=== PATIENT | female | born 1950 | race Caucasian/White ===

== ENCOUNTER 2019-08-15 09:12 | Emergency (ER) | payer OTHER, MEDICAID ==
[~2019-08-15] VITALS: Ht 149.9 cm; Wt 61.2 kg
[2019-08-15 09:22] VITALS: BP 189/71
--- NOTE | 2019-08-15 09:29 | NUR ---
Patient ambulated to bed 6. RN evaluating patient at bedside.
--- NOTE | 2019-08-15 09:49 | NUR ---
Dr. Gruber is evaluating the patient at bedside.
[2019-08-15] MEDS ORDERED: ASPIRIN 325 MG TAB PO ONE (09:55)
[2019-08-15] MEDS ORDERED: LOSARTAN 50 MG TAB PO SCH (10:00)
--- NOTE | 2019-08-15 10:00 | NUR ---
C/O LEFT SIDED CHEST PAIN 08/02, DESCRIBED BURNING, X 1 DAY. UNPROVOKED AND CONSTANT ALL DAY AND DIAPHORETIC X YESTERDAY. PAIN RAIDAITING TO L ARM YESTERDAY. DENIES N/V/D OR AB PAIN. PT ALERT AND AWAKE, DR CALIX AND SPOOL CLEANER HAND NOTES REVIEWED-PT PERUVIAN SPEAKING. HX---THYROID, HTN, HYPERLIPIDEMIA
--- NOTE | 2019-08-15 10:05 | NUR ---
iv inserted and labs drawn bedside
--- NOTE | 2019-08-15 10:07 | NUR ---
aspirin po administered
--- NOTE | 2019-08-15 10:20 | NUR ---
xray at bedside
--- NOTE | 2019-08-15 10:30 | NUR ---
CALLED PHARMACY FOR LOSARTAN
--- NOTE | 2019-08-15 10:53 | NUR ---
LOSARTAN PO ADMINISTERED
--- NOTE | 2019-08-15 10:58 | NUR ---
PTS BP CURRENTLY 153/71
[2019-08-15 11:02] LABS: ALBUMIN 3.5 g/dL (3.4-5.0); ANION GAP 10.4 (8-16); CARBON DIOXIDE 30.4 mmol/L (21-32); CREATININE 0.8 mg/dL (0.6-1.3); POTASSIUM 3.8 mmol/L (3.5-5.1); TOTAL BILIRUBIN 0.3 mg/dL (0.0-1.0)
--- NOTE | 2019-08-15 11:23 | NUR ---
PT REPORTS DECREASE IN CP, NOW 05/02. NADR
[2019-08-15 12:09] LABS: BASOPHILS % (AUTO) 0.3 % (0.0-2.0); EOSINOPHILS % (AUTO) 0.5 % (0.0-4.0); HEMATOCRIT 39.8 % (36-48); HEMOGLOBIN 13.3 g/dL (12.0-16.0); LYMPHOCYTES # (AUTO) 1.4 K/uL (2.5-16.5); LYMPHOCYTES % (AUTO) 23.2 % (20.5-51.1); MEAN CORPUSCULAR HEMOGLOBIN 30 pg (27-31); MEAN CORPUSCULAR HGB CONC 34 g/dL (33-37); MEAN CORPUSCULAR VOLUME 90.6 fL (80-94); MONOCYTES # (AUTO) 0.4 K/uL (0.8-1.0); MONOCYTES % (AUTO) 6.9 % (1.7-9.3); NEUTROPHILS # (AUTO) 4.2 K/uL (1.8-7.7); NEUTROPHILS % (AUTO) 69.1 % (42.2-75.2); PLATELET COUNT (AUTO) 199 K/uL (140-450); RED BLOOD CELL COUNT(AUTO) 4.39 MIL/uL (4.20-5.40); RED CELL DISTRIBUTION WIDTH 12.8 % (11.6-13.7); WHITE BLOOD COUNT (AUTO) 6.1 K/uL (4.8-10.8)
--- NOTE | 2019-08-15 12:26 | NUR ---
Dr. Gruber is evaluating the patient at bedside.
[2019-08-15 12:48] VITALS: BP 141/52
--- NOTE | 2019-08-15 12:48 | NUR ---
Patient discharged with v/s stable. Written and verbal after care instructions given and explained regarding nonspecific cp in [place] by dr bahena. Patient verbalized understanding. Ambulatory with steady gait. All questions addressed prior to discharge. Advised to follow up with PMD. pt given copy of lab results and xray results
== END 2019-08-15 12:48 | disposition home or self-care (01) ==
LOC: MED 09:12
DX: R07.89 Other chest pain (principal); I10 Essential (primary) hypertension; E78.5 Hyperlipidemia, unspecified; E03.9 Hypothyroidism, unspecified
CPT/HCPCS: 36415; 71045; 80053; 84484; 85025; 93005; 99285; Q0092